=== PATIENT | female | born 1995 | race Caucasian/White ===

== ENCOUNTER 2019-11-14 23:56 | Emergency (ER) | payer SELFPAY ==
[~2019-11-14] VITALS: Ht 162.6 cm; Wt 54.4 kg
--- NOTE | 2019-11-15 | NUR ---
PT CAME IN TO THE ED C/O FLU LIKE SYMPTOMS SINCE YESTERDAY. +COUGH W/ CONGESTION, +HEADACHE, WEAKNESS, -SOB. PT AAOX4, VSS, NO ACUTE DISTRESS NOTED. CONNECTED TO THE CARDAIC MONITOR AND POX.
[2019-11-15 00:01] VITALS: BP 115/68
== END 2019-11-15 00:48 | disposition home or self-care (01) ==
LOC: ER 11-15
DX: O98.512 Other viral diseases complicating pregnancy, second trimester (principal); J11.1 Influenza due to unidentified influenza virus with other respiratory manifestations; Z3A.20 20 weeks gestation of pregnancy